=== PATIENT | male | born 2000 | race African-American/Black ===

== ENCOUNTER 2020-07-04 11:10 | Outpatient (CLI) | payer OTHER, SELFPAY ==
--- NOTE | 2020-07-04 12:33 | SJPRAD ---
PA AND LATERAL CHEST: Date: 07/04/2020 HISTORY: Sharp chest pain. COMPARISON: 01/29/2015 exam. FINDINGS: Heart size and mediastinum are within normal limits. The lungs are clear of infiltrates. No bony find ings. IMPRESSION: No active intrathoracic disease. POS: [facility]
== END 2020-07-04 11:11 | disposition home or self-care (01) ==
LOC: SCSRAD 11:10
PROVIDERS: ATTEND Nurse Practitioner Family
DX: R05 Cough (principal)
CPT/HCPCS: 87635; U0003